=== PATIENT | female | born 1960 | race Caucasian/White ===

== ENCOUNTER → 2016-09-07 | Outpatient (CLI) | payer OTHER | LOC: KOH-I 14:55 | DX: M54.5 Low back pain (principal); R05 Cough; M51.36 Other intervertebral disc degeneration, lumbar region; M51.34 Other intervertebral disc degeneration, thoracic region; M50.320 Other cervical disc degeneration, mid-cervical region, unspecified level; Z72.0 Tobacco use | CPT/HCPCS: 71020; 72050; 72070; 72110 ==

== ENCOUNTER → 2016-10-29 | Outpatient (CLI) | payer OTHER | LOC: KOH-I 09-29 11:15 | DX: S95.1 Injury of plantar artery of foot (principal); M72.2 Plantar fascial fibromatosis; S86.011A Strain of right Achilles tendon, initial encounter | CPT/HCPCS: 73718 ==

== ENCOUNTER → 2020-06-25 | Outpatient (CLI) | payer OTHER | LOC: KOH-I 11:00 | DX: Z12.2 Encounter for screening for malignant neoplasm of respiratory organs (principal); F17.210 Nicotine dependence, cigarettes, uncomplicated; R91.8 Other nonspecific abnormal finding of lung field | CPT/HCPCS: 71271 ==

== ENCOUNTER → 2020-09-17 | Outpatient (CLI) | payer OTHER | LOC: HEART 5 15:28 | DX: J44.9 Chronic obstructive pulmonary disease, unspecified (principal); J30.9 Allergic rhinitis, unspecified; D64.9 Anemia, unspecified; F41.9 Anxiety disorder, unspecified | CPT/HCPCS: 94060; 94729 ==

== ENCOUNTER → 2022-02-16 | Outpatient (CLI) | payer OTHER | LOC: EXRD 08:52 | DX: R10.11 Right upper quadrant pain (principal) | CPT/HCPCS: 76705 ==